=== PATIENT | female | born 1980 | race Caucasian/White ===

== ENCOUNTER 2020-05-05 18:20 | Emergency (ER) | payer BC ==
[2020-05-05 18:27] VITALS: TEMP 98.8
[2020-05-05 19:30] LABS: Basophils # (A) 0.1 k/uL (0-0.2); Basophils % (A) 1 %; Eosinophils # (A) 0.3 k/uL (0-0.7); Eosinophils % (A) 3 %; HCT 38.2 % (34.0-46.0); Lymphocytes # (A) 2.7 k/uL (1.0-4.8); Lymphocytes % (A) 28 %; MCHC 34.2 g/dL (31.0-37.0); MCV 87.8 fL (80.0-100.0); Mean Platelet Volume 7.6; Monocytes # (A) 0.4 k/uL (0-1.0); Monocytes % (A) 4 %; Neutrophils # (A) 6.2 k/uL (1.3-7.7); Neutrophils % (A) 64 %; Platelet Count 215 k/uL (150-450); RBC 4.34 m/uL (3.80-5.40); RDW 12.1 % (11.5-15.5); WBC 9.7 k/uL (3.8-10.6)
[2020-05-05 19:57] LABS: ALT 17 U/L (4-34); AST 24 U/L (14-36); African American GFR (CKD) >90 (>60 ml/min/1.73 sqM); Albumin 4.6 g/dL (3.5-5.0); Alkaline Phosphatase 68 U/L (38-126); Anion Gap 8 mmol/L; Blood Urea Nitrogen 14 mg/dL (7-17); Calcium 9.4 mg/dL (8.4-10.2); Carbon Dioxide 25 mmol/L (22-30); Chloride 104 mmol/L (98-107); Glucose 99 mg/dL (74-99); Lipase 90 U/L (23-300); Non-African American GFR(CKD) 85 (>60 ml/min/1.73 sqM); Potassium 4.1 mmol/L (3.5-5.1); Sodium 137 mmol/L (137-145); Total Bilirubin 0.5 mg/dL (0.2-1.3); Total Protein 7.4 g/dL (6.3-8.2)
[2020-05-05 20:03] LABS: D-Dimer 0.23 mg/L FEU (<0.60); INR 0.9 (<1.2); Partial Thromboplastin Time 24.2 sec (22.0-30.0); Prothrombin Time 9.8 sec (9.0-12.0)
--- NOTE | 2020-05-05 20:49 | XR ---
EXAMINATION TYPE: XR chest 2V DATE OF EXAM: 05/05/2020 COMPARISON: None INDICATION: Chest pain TECHNIQUE: Single frontal view of the chest is obtained. FINDINGS: The heart size is normal. The pulmonary vasculature is normal. The lungs are clear. IMPRESSION: 1. No acute pulmonary process.
[2020-05-05 20:53] LABS: Magnesium 1.8 mg/dL (1.6-2.3)
--- NOTE | 2020-05-05 21:05 | CT ---
EXAMINATION TYPE: CT brain wo con DATE OF EXAM: 05/05/2020 COMPARISON: None INDICATION: dizziness, vertigo DLP: 1072.4 mGycm, Automated exposure control for dose reduction was used. CONTRAST: None CT of the brain is performed utilizing 3 mm thick sections through the posterior fossa and 3 mm thick sections through the remaining calvarium. Study is performed within 24 hours of arrival to the hosp [facility]. No abnormal hyperdensity is present to suggest an acute intracranial hemorrhage. There is a small calcification the posterior left occipital lobe. Series 201 image 26 No acute infarcts are evident. Ventricles and sulci are appropriate for the patient age. Air-fluid levels are within the sphenoid sinuses. Remaining paranasal sinuses are clear. 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 IMPRESSIONS: 1. No acute intracranial process. 2. Clinical correlation recommended for sphenoid sinusitis.
--- NOTE | 2020-05-05 21:17 | ED ---
Chest Pain HPI - General Chief Complaint: Chest Pain Stated Complaint: Chest Pain Time Seen by Provider: 05/05/20 18:25 Source: patient Mode of arrival: wheelchair Limitations: no limitations - History of Present Illness Initial Comments: Patient is a 39-year-old female with no past medical history who presents emergency room with reported chest pain and dizziness. She states her symptoms have been present for the past several days. Reports that she cannot describe her chest pain just feels "different". Denies any provocative factors. No ripping or tearing sensation to her back. Also reports that she feels as if the room is spinning on her. Denies previous history of vertiginous symptoms. She denies any fevers or chills. No vision changes. Denies headache. No neck pain or stiffness. Denies any shortness of breath. No family history of sudden cardiac . Denies history of DVT or PE. No calf pain or swelling. No recent travel. No other alleviating, precipitating or modifying factors - Related Data Allergies Allergy/AdvReac Type Severity Reaction Status Date / Time ibuprofen Allergy Anaphylaxis Verified 05/05/20 18:27 Review of Systems ROS Statement: Those systems with pertinent positive or pertinent negative responses have been documented in the HPI. ROS Other: All systems not noted in ROS Statement are negative. EKG Findings - EKG Comments: EKG Findings:: EKG done states a normal sinus rhythm with a ventricular rate of 77. PA interval 122. QRS 84. QTC of 445. Q-wave with inverted T-wave in lead 3. No acute ST segment elevations Past Medical History Past Medical History: No Reported History History of Any Multi-Drug Resistant Organisms: None Reported Past Surgical History: Section Additional Past Surgical History / Comment(s): surgery to remove IUD Past Psychological History: No Psychological Hx Reported Smoking Status: Former smoker Past Alcohol Use History: Occasional Past Drug Use History: None Reported General Exam Limitations: no limitations General appearance: alert, in no apparent distress Head exam: Present: atraumatic, normocephalic, normal inspection Eye exam: Present: normal appearance, PERRL, EOMI. Absent: scleral icterus, conjunctival injection, periorbital swelling ENT exam: Present: normal exam, mucous membranes moist Neck exam: Present: normal inspection. Absent: tenderness, meningismus, lymphadenopathy Respiratory exam: Present: normal lung sounds bilaterally. Absent: respiratory distress, wheezes, rales, rhonchi, stridor Cardiovascular Exam: Present: regular rate, normal rhythm, normal heart sounds. Absent: systolic murmur, diastolic murmur, rubs, gallop, clicks GI/Abdominal exam: Present: soft, normal bowel sounds. Absent: distended, tenderness, guarding, rebound, rigid Extremities exam: Present: normal inspection, full ROM, normal capillary refill. Absent: tenderness, pedal edema, joint swelling, calf tenderness Back exam: Present: normal inspection Neurological exam: Present: alert, oriented X3, CN II-XII intact Psychiatric exam: Present: normal affect, normal mood Skin exam: Present: warm, dry, intact, normal color. Absent: rash Course Vital Signs 05/05/20 05/05/20 05/05/20 18:24 19:40 19:41 Temperature 98.8 F Pulse Rate 97 Pulse Rate [ 76 Sitting] Pulse Rate [ Standing] Pulse Rate [ 67 Supine] Respiratory 18 18 18 Rate Blood Pressure 122/77 Blood Pressure 121/81 [Sitting] Blood Pressure [Standing] Blood Pressure 114/59 [Supine] O2 Sat by Pulse 98 Oximetry 05/05/20 05/05/20 19:42 21:52 Temperature Pulse Rate 86 Pulse Rate [ Sitting] Pulse Rate [ 83 Standing] Pulse Rate [ Supine] Respiratory 20 18 Rate Blood Pressure 126/74 Blood Pressure [Sitting] Blood Pressure 122/88 [Standing] Blood Pressure [Supine] O2 Sat by Pulse 99 Oximetry Chest Pain MDM - MDM Upon arrival the patient is placed into room 7. A thorough history and physical exam was performed. Peripheral IV is established. Laboratory studies were conducted. Patient was sent for a chest x-ray and a CT of her head she reports to vertiginous symptoms. Laboratory studies are unremarkable. D-dimer 0.23. Troponin negative. HCG negative. Chest x-ray demonstrates no acute process. CT brain demonstrates no acute intracranial process. Clinical correlation for sphenoid sinusitis. These results are discussed with the patient. I did recommend follow-up with her primary care physician for further evaluation of her symptoms. I do believe that she needs Holter monitoring, an echo and stress test. Patient agreed to this. If she has any new or worsening symptoms she should return to the emergency room. She was discharged in stable condition Disposition Clinical Impression: Atypical chest pain Disposition: HOME SELF-CARE Condition: Stable Instructions (If sedation given, give patient instructions): Chest Pain (ED) Additional Instructions: Please follow-up with your primary care doctor. I do recommended Holter monitoring, echo and possible stress testing. Return to the emergency room for any new or worsening symptoms Is patient prescribed a controlled substance at d/c from ED?: No Referrals: Isabel Rodriguez MD [STAFF PHYSICIAN] - 1-2 days Anna Wylie MD [STAFF PHYSICIAN] - 1-2 days Time of Disposition: 21:31
[2020-05-05 21:56] VITALS: BP 126/74; PULSE 86; RESP 18
== END 2020-05-05 21:56 | disposition home or self-care (01) ==
LOC: EC 18:20
DX: R07.89 Other chest pain (principal); R42 Dizziness and giddiness; Z88.6 Allergy status to analgesic agent; Z87.891 Personal history of nicotine dependence
CPT/HCPCS: 36415; 70450; 71046; 80053; 81025; 83690; 83735; 84484; 85025; 85379; 85610; 85730; 93005; 99285

== ENCOUNTER → 2020-06-01 | Outpatient (CLI) | payer BC ==
--- NOTE | 2020-06-01 13:00 | ECHOF ---
Referral Reason:R07.9 Chest pain, R55 Pre syncope MEASUREMENTS -------- HEIGHT: 165.1 cm WEIGHT: 83.0 kg BP: RVIDd: 2.7 cm (< 3.3) IVSd: 0.9 cm (0.6 - 1.1) LVIDd: 4.5 cm (3.9 - 5.3) LVPWd: 0.9 cm (0.6 - 1.1) IVSs: 1.2 cm LVIDs: 3.0 cm LVPWs: 1.5 cm LAESV Index (A-L): 17.60 ml/m Ao Diam: 2.5 cm (2.0 - 3.7) AV Cusp: 1.7 cm (1.5 - 2.6) LA Diam: 3.8 cm (2.7 - 3.8) MV EXCURSION: 11.063 mm (> 18.000) MV EF SLOPE: 91 mm/s (70 - 150) EPSS: 0.6 cm MV E Ja: 0.73 m/s MV DecT: 172 ms MV A Ja: 0.62 m/s MV E/A Ratio: 1.17 RAP: 5.00 mmHg RVSP: 15.06 mmHg FINDINGS -------- Sinus rhythm. This was a technically good study. LV size, wall thickness and systolic function are normal, with an EF greater than 55%. The left jese tricular size is normal. The right ventricle is normal in size. The left atrial size is normal. Normal LA size by volume 22+/-6 ml/m2. The right atrial size is normal. The aortic valve is trileaflet, and appears structurally normal. No aortic stenosis or regurgitation. Mild mitral regurgitation is present. Mild tricuspid regurgitation present. Right ventricular systolic pressure is normal at < 35 mmHg. There is no pulmonic regurgitation present. The aortic root size is normal. There is no pericardial effusion. CONCLUSIONS -------- 1. LV size, wall thickness and systolic function are normal, with an EF greater than 55%. 2. The left ventricular size is normal. 3. The right ventricle is normal in size. 4. The left atrial size is normal. 5. Normal LA size by volume 22+/-6 ml/m2. 6. The right atrial size is normal. 7. Mild mitral regurgitation is present. 8. Mild tricuspid regurgitation present. 9. There is no pericardial effusion. [employer] SUPERVISOR: Cherelle Shah RDCS
--- NOTE | 2020-06-01 14:06 | ECHOS ---
Stress Test Results/Findings: Exam Performed: stress echo exercise Exam Date: 06/01/20 Reason for Exam: CHEST PAIN Height: 5 ft 5 in Weight: 183 kg Protocol: MOHIT Stage: 3 Duration of Exercise: 9:00 Resting Heart Rate: 66 Resting Blood Pressure: 98/51 Maximum Achieved Heart Rate: 162 Maximum Achieved Blood Pressure: 155/65 85% PMHR: 153 100% PMHR: 180 METS: 10.3 Technologist Comment: Stress Test Results/Findings: Patient underwent exercise stress echo with a Mohit protocol treadmill stress test. Patient exercised into Stage 3 for a total of 9 minutes reaching a total of 10.3 METS. Patient's maximum heart rate was 162 which represented 90% age- predicted maximum heart rate. Stress EKG portion: At baseline patient's EKG showed normal sinus rhythm, normal axis, no significant ST or T wave abnormalities. At peak exercise, EKG showed nonspecific 0.[address] depressions in the inferior lateral leads. Stress echo portion: 2-D echocardiogram was performed in the parasternal long, personal short, apical 2 and apical four-chamber views at rest, peak exercise and in recovery. At baseline, echocardiogram showed left ventricular ejection fraction 55% without wall motion abnormalities. With peak exercise, echocardiogram shows improvement in left ventricular ejection fraction, increase contractility, decrease in left ventricular dimension without wall motion abnormalities consistent with a normal response to exercise. Conclusions: 1. Normal EKG and echo response to exercise without evidence of inducible ischemia. 2. Average exercise capacity. [facility]
--- NOTE | 2020-06-08 14:47 | HM ---
Baseline rhythm is sinus. The minimum heart rate is 54 with a maximum 147. The average heart rate is 86. Patient had occasional APCs and occasional PVCs. No significant pauses or bradyarrhythmias noted. Patient complained of sharp chest pain, dizziness, lightheadedness, nausea, and racing of the heart. The symptoms did not correlate with any significant cardiac events. Final impression #1. Sinus rhythm. #2 occasional APCs. #3 occasional PVCs #4. Patient's multitude of symptoms did not correlate with any significant cardiac events. MTDD
== END | disposition home or self-care (01) ==
LOC: RADNMMAIN 09:51
PROVIDERS: ATTEND Family Medicine
DX: I08.1 Rheumatic disorders of both mitral and tricuspid valves (principal); I49.8 Other specified cardiac arrhythmias; R07.9 Chest pain, unspecified; R55 Syncope and collapse
CPT/HCPCS: 93225; 93226; 93306; 93351

== ENCOUNTER → 2020-08-31 | Outpatient (CLI) | payer BC ==
--- NOTE | 2020-08-31 16:00 | XR ---
Left ankle and left leg HISTORY: Pain, trauma 2 weeks prior 2 views of the left leg, 3 views the left ankle submitted Bone mineralization, joint spaces and alignment are maintained. There is a plantar calcaneal spur. On ly mild soft tissue swelling is noted, there is enthesophyte at insertion of the Achilles tendon. Sma ll ossific density questioned at the level of the distal fibula appears well-corticated and not felt likely to be acute. IMPRESSION: No acute fracture or dislocation.
== END | disposition home or self-care (01) ==
LOC: RADXRMAIN 15:04
PROVIDERS: ATTEND Family Medicine
DX: M25.572 Pain in left ankle and joints of left foot (principal)
CPT/HCPCS: 36415; 85379

== ENCOUNTER 2022-07-06 21:42 | Emergency (ER) | payer BC ==
[2022-07-07] MEDS ORDERED: MORPHINE SULFATE 4 MG/ML SYRINGE IV STA (00:05)
[2022-07-07] MEDS ORDERED: SODIUM CHLORIDE 0.9% 1,000 ML IV STA (00:05)
--- NOTE | 2022-07-07 00:24 | ED ---
Abdominal Pain HPI - General Chief Complaint: Abdominal Pain Stated Complaint: ABD pain/upper back Source: patient, RN notes reviewed, old records reviewed Mode of arrival: ambulatory Limitations: no limitations - History of Present Illness Initial Comments: This is a 41-year-old female to the emergency department for evaluation patient presents today for evaluation of abdominal pain. Persistent abdominal pain mild nausea no vomiting no fevers patient has no other significant findings here in the emergency department no shortness of breath no cough or congestion bodyaches and pains. She has had , history of gallbladder illness MD Complaint: abdominal pain -: days(s) Location: epigastric, suprapubic Radiation: epigastric, suprapubic Migration to: epigastric, suprapubic Severity: moderate Severity scale (1-10): 7 Quality: sharp Consistency: constant Improves With: nothing Worsens With: nothing Associated Symptoms: nausea - Related Data Allergies Allergy/AdvReac Type Severity Reaction Status Date / Time ibuprofen Allergy Anaphylaxis Verified 07/06/22 21:57 Review of Systems ROS Statement: Those systems with pertinent positive or pertinent negative responses have been documented in the HPI. ROS Other: All systems not noted in ROS Statement are negative. Past Medical History Past Medical History: No Reported History Additional Past Medical History / Comment(s): gallbladder, bladder infection History of Any Multi-Drug Resistant Organisms: None Reported Past Surgical History: Section Additional Past Surgical History / Comment(s): surgery to remove IUD Past Psychological History: No Psychological Hx Reported Smoking Status: Former smoker Past Alcohol Use History: Occasional Past Drug Use History: None Reported General Exam Limitations: no limitations General appearance: alert, in no apparent distress Head exam: Present: atraumatic, normocephalic, normal inspection Eye exam: Present: normal appearance, PERRL, EOMI. Absent: scleral icterus, conjunctival injection, periorbital swelling ENT exam: Present: normal exam, mucous membranes moist Neck exam: Present: normal inspection. Absent: tenderness, meningismus, lymphadenopathy Respiratory exam: Present: normal lung sounds bilaterally. Absent: respiratory distress, wheezes, rales, rhonchi, stridor Cardiovascular Exam: Present: regular rate, normal rhythm, normal heart sounds. Absent: systolic murmur, diastolic murmur, rubs, gallop, clicks GI/Abdominal exam: Present: soft, normal bowel sounds. Absent: distended, tenderness, guarding, rebound, rigid Extremities exam: Present: normal inspection, full ROM, normal capillary refill. Absent: tenderness, pedal edema, joint swelling, calf tenderness Back exam: Present: normal inspection Neurological exam: Present: alert, oriented X3, CN II-XII intact Psychiatric exam: Present: normal affect, normal mood Skin exam: Present: warm, dry, intact, normal color. Absent: rash Course Vital Signs 07/06/22 07/07/22 21:54 03:54 Temperature 97.8 F 98 F Pulse Rate 63 82 Respiratory 20 18 Rate Blood Pressure 129/77 102/58 O2 Sat by Pulse 98 98 Oximetry - Reevaluation(s) Reevaluation #1: 07/07/22 Medical record is reviewed Patient symptoms are improved here in the ER Patient informed results and questions answered Medical Decision Making - Medical Decision Making 41 female nonspecific abdominal pain. Normal lab values normal computed tomogra phy scan. No acute cause found. Pain is controlled patient can be discharged home - Lab Data Result diagrams: 07/07/22 02:29 07/07/22 02:29 Lab Results 07/07/22 07/07/22 Range/Units 02:29 02:29 WBC 9.4 (3.8-10.6) k/uL RBC 4.38 (3.80-5.40) m/uL Hgb 13.2 (11.4-16.0) gm/dL Hct 38.3 (34.0-46.0) % MCV 87.5 (80.0-100.0) fL MCH 30.2 (25.0-35.0) pg MCHC 34.5 (31.0-37.0) g/dL RDW 11.7 (11.5-15.5) % Plt Count 219 (150-450) k/uL MPV 8.5 Neutrophils % 72 % Lymphocytes % 23 % Monocytes % 3 % Eosinophils % 1 % Basophils % 1 % Neutrophils # 6.7 (1.3-7.7) k/uL Lymphocytes # 2.1 (1.0-4.8) k/uL Monocytes # 0.3 (0-1.0) k/uL Eosinophils # 0.1 (0-0.7) k/uL Basophils # 0.0 (0-0.2) k/uL Sodium 139 (137-145) mmol/L Potassium 4.0 (3.5-5.1) mmol/L Chloride 105 (98-107) mmol/L Carbon Dioxide 27 (22-30) mmol/L Anion Gap 7 mmol/L BUN 14 (7-17) mg/dL Creatinine 0.85 (0.52-1.04) mg/dL Est GFR (CKD-EPI)AfAm >90 (>60 ml/min/1.73 sqM) Est GFR (CKD-EPI)NonAf 85 (>60 ml/min/1.73 sqM) Glucose 107 H (74-99) mg/dL Calcium 9.2 (8.4-10.2) mg/dL Total Bilirubin 0.6 (0.2-1.3) mg/dL AST 21 (14-36) U/L ALT 20 (4-34) U/L Alkaline Phosphatase 56 (38-126) U/L Total Protein 7.2 (6.3-8.2) g/dL Albumin 4.7 (3.5-5.0) g/dL Amylase 47 (30-110) U/L Lipase 64 (23-300) U/L - Radiology Data Radiology results: report reviewed (CT head and pelvis negative for acute disease), image reviewed Disposition Clinical Impression: Abdominal pain Disposition: HOME SELF-CARE Condition: Good Instructions (If sedation given, give patient instructions): Abdominal Pain (ED) Is patient prescribed a controlled substance at d/c from ED?: No Referrals: None,Stated [Primary Care Provider] - 1-2 days Time of Disposition: 03:45
--- NOTE | 2022-07-07 01:05 | CT ---
EXAMINATION TYPE: CT abdomen pelvis wo con DATE OF EXAM: 07/07/2022 COMPARISON: None HISTORY: GALL BLADDER ISSUES, ABD PAIN CT DLP: 444.3 mGycm Automated exposure control for dose reduction was used. Images obtained from the diaphragm to the floor the pelvis with no contrast. Lung bases are clear. No pleural effusion. Heart size is normal. No pericardial effusion. Liver splee n pancreas appear intact. There are numerous calcified gallstones. The bile ducts are not dilated. St omach appears intact. There is no adrenal mass. Kidneys have normal size and contour. No hydronephrosis. Ureters are not di lated. No retroperitoneal adenopathy. The bladder distends smoothly. No inguinal hernia. No free flui d in the pelvis. There is ID in the uterine fundus. Uterus is retroverted. No pelvic mass. No free fl uid in the pelvis. There is no mesenteric edema. No ascites or free air. No sign of a bowel obstruction. Appendix is pos terior and appears normal. There is no intestinal wall thickening. The lumbar vertebrae have normal a lignment. No compression fracture. Facet joints are intact. Hip joints are intact. There are multiple sigmoid diverticula. No diverticulitis. IMPRESSION: No evidence of renal stone or obstruction. Normal appendix. No acute abnormality in the abdomen and p ishaan. Cholelithiasis. No dilated ducts.
[2022-07-07 02:51] LABS: ALT 20 U/L (4-34); AST 21 U/L (14-36); African American GFR (CKD) >90 (>60 ml/min/1.73 sqM); Albumin 4.7 g/dL (3.5-5.0); Alkaline Phosphatase 56 U/L (38-126); Amylase 47 U/L (30-110); Anion Gap 7 mmol/L; Blood Urea Nitrogen 14 mg/dL (7-17); Calcium 9.2 mg/dL (8.4-10.2); Carbon Dioxide 27 mmol/L (22-30); Chloride 105 mmol/L (98-107); Glucose 107 mg/dL (74-99); Lipase 64 U/L (23-300); Non-African American GFR(CKD) 85 (>60 ml/min/1.73 sqM); Sodium 139 mmol/L (137-145); Total Bilirubin 0.6 mg/dL (0.2-1.3); Total Protein 7.2 g/dL (6.3-8.2)
[2022-07-07 02:58] LABS: Basophils % (A) 1 %; Eosinophils # (A) 0.1 k/uL (0-0.7); Eosinophils % (A) 1 %; HCT 38.3 % (34.0-46.0); HGB 13.2 gm/dL (11.4-16.0); Lymphocytes # (A) 2.1 k/uL (1.0-4.8); Lymphocytes % (A) 23 %; MCH 30.2 pg (25.0-35.0); MCHC 34.5 g/dL (31.0-37.0); MCV 87.5 fL (80.0-100.0); Mean Platelet Volume 8.5; Monocytes # (A) 0.3 k/uL (0-1.0); Monocytes % (A) 3 %; Neutrophils # (A) 6.7 k/uL (1.3-7.7); Neutrophils % (A) 72 %; Platelet Count 219 k/uL (150-450); RBC 4.38 m/uL (3.80-5.40); RDW 11.7 % (11.5-15.5); WBC 9.4 k/uL (3.8-10.6)
[2022-07-07] MEDS ORDERED: ACET/COD 300 MG/30 MG STARTER PACK 6 TAB BTL PO STA (03:44)
[2022-07-07] MEDS ORDERED: ONDANSETRON 4 MG ODT STARTER PACK 2 TAB BTL PO STA (03:44)
[2022-07-07] MEDS ORDERED: ONDANSETRON 4 MG/2 ML VIAL IVP STA (03:44)
[2022-07-07 03:55] VITALS: BP 102/58; PULSE 82; RESP 18; TEMP 98
== END 2022-07-07 04:04 | disposition home or self-care (01) ==
LOC: EC 21:42
DX: R10.9 Unspecified abdominal pain (principal); Z87.891 Personal history of nicotine dependence; Z87.19 Personal history of other diseases of the digestive system
CPT/HCPCS: 99284 ×2; 96374 ×2; 96361 ×2; 36415; 80053; 82150; 83690; 85025; 74176; J2405; S0119